=== PATIENT | female | born 1975 | race African-American/Black ===

== ENCOUNTER → 2020-05-09 | Outpatient (CLI) | payer BC ==
[2020-05-09 12:14] LABS: Leuteinizing Hormone 11.2 IU/L
[2020-05-11 13:44] LABS: Follicle Stimulating Hormone 6.74 IU/L (SEE BELOW)
== END | disposition home or self-care (01) ==
LOC: LAB 11:01
PROVIDERS: ATTEND Obstetrics & Gynecology
DX: Z20.2 Contact with and (suspected) exposure to infections with a predominantly sexual mode of transmission (principal); N92.6 Irregular menstruation, unspecified
CPT/HCPCS: 36415; 82670; 83001; 83002; 84403; 84443; 86592; 86695; 86696; 86703